=== PATIENT | female | born 1950 | race Two or more races ===

== ENCOUNTER 2019-01-05 09:00 | Inpatient (IN) | payer OTHER ==
[~2019-01-05] VITALS: Ht 154.9 cm; Wt 58.1 kg
[2019-01-05] MEDS ORDERED: METOPROLOL SUCC25 MG PO (10:24)
[2019-01-05] MEDS ORDERED: PROTONIX40 MG PO (10:24)
[2019-01-05] MEDS ORDERED: CARAFATE1 GM PO (10:26)
[2019-01-05] MEDS ORDERED: NIFEDIPINE ER30 MG PO (10:26)
[2019-01-13] MEDS ORDERED: HYOSCYAMINE0.125 M1 SL (08:51)
[2019-01-13] MEDS ORDERED: OXYC1TAB9 PO (08:52)
[2019-01-13] MEDS ORDERED: CHOLESTYRAMINE P4 GM PO (08:52)
== END 2019-01-13 10:09 | disposition home or self-care (01) | DRG 330 ==
LOC: SURH 09:00 → SURG 01-10 06:32 → O/R 01-10 06:32 → SURH 01-10 07:00 → SURG 01-10 16:08
PROVIDERS: ADMIT Surgery
PROC: 0DJD8ZZ Inspection of Lower Intestinal Tract, Via Natural or Artificial Opening Endoscopic (ICD-10-PCS; 2019-01-10)
PROC: 0DTN4ZZ Resection of Sigmoid Colon, Percutaneous Endoscopic Approach (ICD-10-PCS; principal; 2019-01-10 07:00)
DX: K63.5 Polyp of colon (principal); K56.51 Intestinal adhesions [bands], with partial obstruction; K57.30 Diverticulosis of large intestine without perforation or abscess without bleeding; R59.0 Localized enlarged lymph nodes; K59.02 Outlet dysfunction constipation; N73.6 Female pelvic peritoneal adhesions (postinfective)

== ENCOUNTER 2019-07-05 05:45 | Day surgery (SDC) | payer OTHER ==
[~2019-07-05 05:45] MED LIST: CARAFATE1 GM PO; CHOLESTYRAMINE P4 GM PO; HYOSCYAMINE0.125 M1 SL; METOPROLOL SUCC25 MG PO; NIFEDIPINE ER30 MG PO; OXYC1TAB9 PO; PROTONIX40 MG PO
== END 2019-07-05 09:30 | disposition home or self-care (01) ==
LOC: AMB-ENDOS 05:45
DX: K57.30 Diverticulosis of large intestine without perforation or abscess without bleeding (principal); K58.8 Other irritable bowel syndrome; K63.89 Other specified diseases of intestine

== ENCOUNTER 2019-11-07 05:37 | Day surgery (SDC) | payer OTHER ==
[2019-11-07] MEDS ORDERED: KEFLEX500 MG PO (09:15)
[2019-11-07] MEDS ORDERED: ULTRACET PO (09:16)
== END 2019-11-07 12:35 | disposition home or self-care (01) ==
LOC: CIR.AMB 05:37 → ADM 13:45 → CIR.AMB 13:45
DX: R15.9 Full incontinence of feces (principal)
CPT/HCPCS: 64581; C1767

== ENCOUNTER 2019-11-21 05:01 | Day surgery (SDC) | payer OTHER ==
[~2019-11-21 05:01] MED LIST changes: +ADALAT CC30 MG PO; +ARICEPT10 MG PO; +KEFLEX500 MG PO; +ULTRACET PO
[2019-11-21] MEDS ORDERED: ULTRAM50 MG PO (08:15)
== END 2019-11-21 10:40 | disposition home or self-care (01) ==
LOC: CIR.AMB 05:01
DX: R15.9 Full incontinence of feces (principal)
CPT/HCPCS: 64590; C1767

== ENCOUNTER 2023-08-15 10:41 | Outpatient (CLI) | payer OTHER ==
[~2023-08-15 10:41] MED LIST changes: +ULTRAM50 MG PO
== END 2023-08-15 10:44 | disposition home or self-care (01) ==
LOC: SONOGRAMA 10:41
PROVIDERS: ATTEND Pathology Anatomic Pathology & Clinical Pathology
DX: D44.0 Neoplasm of uncertain behavior of thyroid gland (principal); D34 Benign neoplasm of thyroid gland; E07.9 Disorder of thyroid, unspecified

== ENCOUNTER 2023-12-12 15:59 | Outpatient (CLI) | payer OTHER | END 2023-12-12 16:01 | disposition home or self-care (01) | LOC: SONOGRAMA 15:59 | PROVIDERS: ATTEND Pathology Anatomic Pathology & Clinical Pathology | DX: D44.0 Neoplasm of uncertain behavior of thyroid gland (principal); E04.1 Nontoxic single thyroid nodule ==

== ENCOUNTER 2025-08-19 09:00 | Day surgery (SDC) | payer OTHER ==
[2025-07-31 11:02] VITALS: BP 133/78
[2025-07-31 11:31] LABS: BASO % 0.6 % (0.1-1.2); EOS # 0.14 (0.04-0.54); EOS % 2.6 % (0.7-7.0); LYMPH # 1.28 (1.18-3.74); LYMPH % 24.0 % (19.3-53.1); MEAN PLATELET VOLUME 11.00 fl (9.4-12.4); MONO # 0.47 (0.24-0.82); MONO % 8.8 % (4.7-12.5); NEUT # 3.33 (1.56-6.13); NEUT % 62.3 % (34.0-71.1); RED CELL DISTRIBUTION WIDTH 15.6 % (11.6-14.4)
[2025-07-31 11:33] LABS: URINE APPEARANCE Cloudy; URINE BILIRRUBIN Negative (NEGATIVE); URINE COLOR Yellow; URINE GLUCOSE Negative (NEGATIVE); URINE KETONE 15 (NEGATIVE); URINE LEUKOCYTE Moderate; URINE NITRATE Negative; URINE PROTEIN 30 (NEGATIVE); URINE UROBILINOGEN 1.0 E.U./dl
[2025-07-31 11:36] LABS: URINE CAST 5.73 uL (0.0-1.40); URINE EPITHELIAL CELLS 24.1 uL (0.0-38.8); URINE RBC 23.1 uL (0.0-20.8); URINE WBC 355.1 uL (0.0-23.2)
[2025-07-31 11:54] LABS: URINE BACTERIA > 9821.5 uL (0.0-1933)
[2025-07-31 12:03] LABS: URINE CRYSTALS FEW /HPF
[2025-07-31 12:05] LABS: TYPE CELLS RENAL TUBULAR
[2025-07-31 12:06] LABS: INR 1.08
[2025-07-31 12:06] LABS: URINE BLOOD TRACE
[2025-07-31 12:28] LABS: ALT/SGPT 31.0 U/L (12-78); AST/SGOT 31.0 U/L (15-37); BILIRUBIN TOTAL 0.66 mg/dL (0.3-1.2); BUN CREA RATIO 20.0 (7.0-25.0); CREATININE SERUM 1.35 mg/dL (0.55-1.02); GFR 38.44; GLOBULINA 3.2 G/DL (2.4-3.5); GLUCOSE FASTING 107.0 mg/dL (65-100); OSMOLALITY SERUM 291.0 MOSM/KG (275-295)
[~2025-08-19] VITALS: Ht 152.4 cm; Wt 54.4 kg
[~2025-08-19 09:00] MED LIST changes: +LEVOTHYROXINE25 MCG PO; +NAMENDA1 EACH PO
[2025-08-19] MEDS ORDERED: CEFAZOLIN SODIUM 1,000 MG VIAL ONE (10:13)
[2025-08-19] MEDS ORDERED: LIDOCAINE HCL 1%/EPINEPHRINE 20ML VIAL IJ ONE (12:25)
[2025-08-19] MEDS ORDERED: BUPIVACAINE HCL/MPF 0.5% 30ML VIAL ONE (12:25)
[2025-08-19] MEDS ORDERED: TRAM1TAB98 PO (13:59)
== END 2025-08-19 14:55 | disposition home or self-care (01) ==
LOC: CIR.AMB 09:00
PROVIDERS: ATTEND Surgery
DX: R15.9 Full incontinence of feces (principal); N39.46 Mixed incontinence; T85.193A Other mechanical complication of implanted electronic neurostimulator, generator, initial encounter